=== PATIENT | male | born 2000 | race Caucasian/White ===

== ENCOUNTER → 2022-06-13 11:37 | Outpatient (BNVA) | payer MEDICAID, SELFPAY | PROVIDERS: PCP Family Medicine; Visit Provider Nurse Practitioner Family | DX: R63.0 Anorexia (principal); R11.0 Nausea | CPT/HCPCS: 80053 ==

== ENCOUNTER 2022-07-04 13:40 | Emergency (ER) | payer SELFPAY ==
[2022-07-04 13:48] VITALS: BP 128/76; PULSE 72; RESP 16; TEMP 36.6; O2SAT 99
--- NOTE | 2022-07-04 14:18 | ED_ITS ---
HPI - Back Pain/Injury General: Chief Complaint: Back Pain/Injury Stated Complaint: back pain Time Seen by Provider: 07/04/22 13:55 History of Present Illness: Patient is a 21-year-old male comes to the ED with back pain. Symptoms started yesterday. Patient denies any fall, injury or trauma to cause pain. Denies any heavy lifting. He states he was walking around a store yesterday and then felt pain on the left side of his mid back. He rates the pain currently a 6 out of 10. Pain worsens with certain movements of his torso. Denies any pain radiating down the legs. Denies any bladder or bowel incontinence, pelvic anesthesia or any numbness tingling or weakness to lower extremities. Associated symptoms: Deny abdominal pain, chills, dysuria, fatigue, fever(s), hematuria, nausea or vomiting Review of Systems Const: Denies: fever(s), chills or fatigue Eyes: Denies: change in vision or eye discomfort ENMT: Denies: throat pain, odynophagia, nasal discharge or nasal congestion Card: Denies: chest pain, palpitations, edema, swelling of feet/ankles, dyspnea on exertion or orthopnea Resp: Denies: dyspnea, productive cough or non-productive cough GI: Denies: abdominal pain, nausea, vomiting, diarrhea, constipation or hematochezia : Denies: flank pain, difficulty urinating, dysuria or hematuria Musc: Reports: back pain; Denies: neck pain or extremity swelling Skin/Breast: Denies: rash or new lesions Neuro: Denies: headache(s), numbness in extremities or weakness in extremities [facility] ED PFSH: Medical History Anxiety and depression Social History Smoking and tobacco status: current every day smoker Physical Exam Const: COMMON NORMALS: no acute distress, patient oriented x3 and alert HENMT: COMMON NORMALS: normocephalic HEAD & SCALP: normocephalic MOUTH: Normal oral and palatal mucosa present THROAT: posterior oropharynx normal and uvula midline Neck/C-Spine: COMMON NORMALS: supple GENERAL: Yes normal visual inspection Resp: COMMON NORMALS: normal respiratory effort, No retractions, No use of accessory muscles and clear to auscultation bilaterally AUSCULTATION: clear to auscultation bilaterally Cardio: COMMON NORMALS: regular rate, regular rhythm, S1 normal heart sound present, S2 normal heart sound present, No gallops present (Cardio), No clicks present (Cardio), No murmurs present (Cardio) and Peripheral pulses 2+ throughout RATE: regular rate RHYTHM: regular rhythm HEART SOUNDS: S1 normal heart sound present and S2 normal heart sound present PERIPHERAL PULSES: Peripheral pulses 2+ throughout GI: COMMON NORMALS: Normal to inspection, nondistended, normoactive bowel kimo nds present, Soft to palpation, non-tender and no masses PALPATION: Yes Soft to palpation : COMMON NORMALS: Yes no CVA tenderness BLADDER/KIDNEY EXAM: Yes no CVA tenderness Back/Pelvis: COMMON NORMALS: no CVA tenderness THORACIC SPINE/UPPER BACK: Yes paraspinal muscle tenderness Thoracic paraspinal muscle tenderness: left Left thoracic paraspinal muscle tenderness: T7, T8 and T9 Extremity: COMMON NORMALS: normal to inspection Neuro: COMMON NORMALS: patient oriented x3 SENSORIUM/ORIENTATION: Yes alert GAIT: Yes Normal gait present Skin: GENERAL SKIN EXAM: dry skin Course Vital Signs: Vital signs: Vital Signs Temperature 97.9 F 07/04/22 13:48 Pulse Rate 56 L 07/04/22 14:35 Respiratory Rate 13 07/04/22 14:35 Blood Pressure 107/69 07/04/22 14:35 Pulse Oximetry 100 07/04/22 14:35 Oxygen Delivery Me thod Room Air 07/04/22 14:35 MDM - Back Pain/Injury Medical Decision Making Patient is a 21-year-old male comes to the ED with back pain. Symptoms started yesterday. Patient denies any fall, injury or trauma to cause pain. Denies any heavy lifting. He states he was walking around a store yesterday and then felt pain on the left side of his mid back. He rates the pain currently a 6 out of 10. Pain worsens with certain movements of his torso. Denies any pain radiating down the legs. Denies any bladder or bowel incontinence, pelvic anesthesia or any numbness tingling or weakness to lower extremities. Vitals are stable. He appears nontoxic in no acute distress or pain. Patient has left thoracic paraspinal muscle tenderness around T7-T9. Rest of exam is benign. Patient diagnosed with strain of thoracic back and discharged home with a prescription for ibuprofen 800 mg and muscle relaxer. Told to follow-up with his PCP in the next week for reevaluation. Patient understood and agreed with plan. Discharge Plan Discharge Patient Disposition: Home Clinical Impression: Strain of thoracic back region Condition: Stable Prescriptions: New ibuprofen 800 mg tablet 800 mg PO Q8H PRN (Reason: pain) Qty: 30 0RF methocarbamol 750 mg tablet 750 mg PO Q8H PRN (Reason: Back muscle spasms and pain) Qty: 20 0RF No Action quetiapine [Seroquel] 50 mg tablet 50 mg PO .qhs 30 Days Qty: 30 3RF lamotrigine 150 mg tablet 150 mg PO DAILY 30 Days Qty: 30 3RF Discharge Orders: Discharge ED (Routine); Ordered 07/04/22 Ordered By: Jeremie Alexander Referrals: Mary Kruse MD [Primary Care Provider] - Discharge Diet: Regular Discharge Activity: Increase activity as tolerated Patient Instructions: Thoracic Back Strain (ED) Activity Restrictions/Additional Instructions: Follow-up with medical provider as directed in the next 5 to 7 days for reevaluation. Take medications as prescribed. Return to the ER or your medical provider if condition worsens. Please read and understand discharge instructions. Thank you for choosing [facility] for your healthcare needs today. Please realize this is an emergency room and that we are providing you with a medical screening exam and this may not be complete and all inclusive of all the testing and or work up that you may need to determine your ailment or severity of your illness. It is very important that you follow up as instructed or that you return to the Emergency Department should you have concerns or if your condition changes or worsens in any way. 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
[2022-07-04] MEDS: cyclobenzaprine 10 mg Tablet PO (14:28)
[2022-07-04] MEDS: ketorolac 60 mg/2 mL INJ IM (14:28)
[2022-07-04 14:35] VITALS: BP 107/69; PULSE 56; RESP 13; O2SAT 100
== END 2022-07-04 15:32 | disposition home or self-care (01) ==
PROVIDERS: Emergency Provider Physician Assistant; PCP Family Medicine
DX: S29.012A Strain of muscle and tendon of back wall of thorax, initial encounter (principal); F17.210 Nicotine dependence, cigarettes, uncomplicated; X58.XXXA Exposure to other specified factors, initial encounter
CPT/HCPCS: 96372; 99284; J1885

== ENCOUNTER 2023-02-09 19:47 | Emergency (ER) | payer OTHER, SELFPAY ==
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
[2023-02-09 20:03] VITALS: BP 132/86; PULSE 75; RESP 18; TEMP 36.8; O2SAT 98; BMI 19.3
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
[2023-02-09] MEDS: naproxen 500 mg Tablet PO (21:20)
[2023-02-09 21:24] VITALS: BP 132/86; PULSE 75; RESP 18; TEMP 36.8; O2SAT 98
== END 2023-02-09 21:25 | disposition home or self-care (01) ==
PROVIDERS: Emergency Provider Emergency Medicine; PCP Family Medicine
DX: S40.012A Contusion of left shoulder, initial encounter (principal); Z72.0 Tobacco use; V89.2XXA Person injured in unspecified motor-vehicle accident, traffic, initial encounter
CPT/HCPCS: 73030; 99283

== ENCOUNTER → 2024-04-19 14:17 | Outpatient (BNVA) | payer BC, MEDICAID, SELFPAY | PROVIDERS: PCP Nurse Practitioner Family; Visit Provider Emergency Medicine | DX: J02.9 Acute pharyngitis, unspecified (principal) | CPT/HCPCS: 87880 ==

== ENCOUNTER → 2025-02-13 13:45 | Outpatient (BNVA) | payer OTHER, SELFPAY | PROVIDERS: PCP Nurse Practitioner Family; Visit Provider Emergency Medicine | DX: J02.9 Acute pharyngitis, unspecified (principal) | CPT/HCPCS: 87071; 87880 ==